=== PATIENT | male | born 1970 | race Caucasian/White ===

== ENCOUNTER 2023-08-26 06:29 | Day surgery (SDC) | payer OTHER ==
[~2023-08-26] VITALS: Ht 177.8 cm; Wt 98.4 kg
[~2023-08-26 06:29] MED LIST: MIDAZOLAM HCL 5 MG/5 ML VIAL IV PRN; fentaNYL citrate 100 MCG/2 ML VIAL IV PRN
[2023-08-26] MEDS ORDERED: MIDAZOLAM HCL 5 MG/5 ML VIAL ONE (06:39)
[2023-08-26] MEDS ORDERED: fentaNYL citrate 100 MCG/2 ML VIAL ONE (06:39)
[2023-08-26 06:47] VITALS: BP 142/96
[2023-08-26] MEDS ORDERED: LIDOCAINE HCL 1% 5 ML SDV INJ ONE (07:00)
[2023-08-26] MEDS ORDERED: LACTATED RINGER'S 1,000 ML IV SCH (07:00)
[2023-08-26] MEDS ORDERED: IBLOOD GLUCOSE TEST STRIP 1 EA TEST VI PRN (07:00)
--- NOTE | 2023-08-26 07:36 | NUR ---
ROUNDS. PT GONE FOR PROCEDURE. PROVIDED PRAYER.
--- NOTE | 2023-08-26 08:02 | NUR ---
08/26/23 0802 Adela Rodriguez 0754-PATIENT ARRIVED TO PACU ON RA RR EVEN. PATIENT AWAKE DENIES PAIN OR NAUSEA ABDOMEN SOFT IVF INFUSING. PATIENT ORIENTED TO PACU. TO BE CALLED FOR RIDE HOME. PATIENT ENCOURAGED TO PASS GAS. 0802-PATIENT AWAKE DENIES PAIN OR NAUSEA. HOB ELEVATED RA 96% RR EVEN.
[2023-08-26 08:25] VITALS: BP 134/95
--- NOTE | 2023-08-26 09:50 | OR ---
[facility] [address], [place] [address] Signed DATE OF OPERATION: 08/26/2023 SURGEON: Linsey Lange MD PREOPERATIVE DIAGNOSIS: Screening. POSTOPERATIVE DIAGNOSES: 1. Minimal internal hemorrhoids. 2. Tortuous, narrowed sigmoid colon. PROCEDURE: Colonoscopy without biopsy. ESTIMATED BLOOD LOSS: None. INDICATIONS: Sotero is a 52-year-old gentleman, asked to see me for a screening colonoscopy. He has no lower GI complaints. There is no family history of colon cancer or polyps. This would be his 1st colonoscopy. He mentioned to me that I helped his a couple of years ago. In fact, his actually remember the prep quite well. In the office, I gave Sotero a pamphlet on colonoscopy. We reviewed the nature of the test. There is risk including, but not limited to gas bloating, crampy abdominal pain, bleeding, perforation requiring surgery, and missed diagnosis. We also reviewed the written instructions for bowel prep line by line. We also reviewed the need for IV conscious sedation. He had expressed understanding and wished to proceed. DESCRIPTION OF PROCEDURE: Sotero was taken into our endoscopy suite and placed in the left lateral decubitus position. He was given a total of 7 mg of Versed and 100 mcg of fentanyl to cover the case. Even then, he was frequently awake and talking to us and pushing back on the scope. I suspect he would be much better served with monitored anesthesia care and propofol infusion. A digital rectal exam was performed. He had good sphincter tone. There were no external hemorrhoids. There were no masses. His prostate is just starting to get indurated. The adult colonoscope was introduced and advanced under direct visualization of the camera up into the cecum itself. We had to frequently pause and allow him to rest and catch up with some Versed and fentanyl. His prep was quite excellent. We could easily see the appendiceal orifice and ileocecal valve. The scope was then slowly withdrawn. There was no pathology whatsoever throughout the entire Electronically Signed By: LINSEY LANGE MD 08/26/23 0950 PATIENT NAME: DILLAN BRANDON OPERATIVE REPORT DATE OF : 72 REPORT #: [id number] PHYSICIAN: LINSEY LANGE MD PCP: KLAUS BELCHER MD REPORT IS CONFIDENTIAL AND NOT TO BE RELEASED WITHOUT AUTHORIZATION [facility] [address] [place], [place] [address] Signed colon or rectum. He does have a tortuous somewhat narrowed sigmoid colon and that is what gave me the most trouble with sedation. Once in the rectum, the scope had been retroflexed and he does have minimal internal hemorrhoid columns. After this, the gas was suctioned out and the colonoscope removed. Overall, Sotero tolerated the procedure well. RECOMMENDATIONS: Sotero can return in 10 years for repeat screening colonoscopy. He might consider monitored anesthesia care with propofol infusion particularly as he gets older. MD ALEXANDRA Palmer/RAFFAELEL /[id number] cc: MD Klaus Palmer MD Copies: LINSEY LANGE MD, RUSSELL BARR MD ~ Electronically Signed By: LINSEY LANGE MD 08/26/23 0950 PATIENT NAME: DILLAN BRANDON OPERATIVE REPORT DATE OF : 72 REPORT #: [id number] PHYSICIAN: LINSEY LANGE MD PCP: KLAUS BELCHER MD REPORT IS CONFIDENTIAL AND NOT TO BE RELEASED WITHOUT AUTHORIZATION
== END 2023-08-26 08:30 | disposition home or self-care (01) ==
LOC: DS 06:29
PROVIDERS: ATTEND Colon & Rectal Surgery
PROC: 0DJD8ZZ Inspection of Lower Intestinal Tract, Via Natural or Artificial Opening Endoscopic (ICD-10-PCS; principal; 2023-08-26 07:30)
DX: Z12.11 Encounter for screening for malignant neoplasm of colon (principal); K63.89 Other specified diseases of intestine; K64.8 Other hemorrhoids
CPT/HCPCS: J2250; J3010; J7121

== ENCOUNTER 2025-05-27 11:18 | Emergency (ER) | payer OTHER ==
[~2025-05-27] VITALS: Ht 177.8 cm; Wt 93.2 kg
[2025-05-27 11:34] LABS: BASOPHILS 1.1 % (0.2-1.2); EOSINOPHILS 3.2 % (0.8-7.0); LYMPHOCYTES 32.0 % (21.8-53.1); MCH 31.2 PG (25.7-32.2); MCHC 33.4 g/dL (32.3-36.5); MCV 93.4 fL (79.0-92.2); MONOCYTES 13.1 % (5.3-12.2); NEUTROPHILS 50.4 % (34.0-67.9); RBC 5.00 M/uL (4.63-6.08)
[2025-05-27] MEDS ORDERED: SODIUM CHLORIDE 0.9% 1,000 ML IV PRN (11:45)
[2025-05-27 11:50] LABS: ALT (SGPT) 49.0 U/L (14-59); AST (SGOT) 22.0 U/L (15-37); GLOMERULAR FILTRATION RATE,EST 76.0 mL/min (>60); PROTEIN, TOTAL 7.3 g/dL (6.4-8.2); UREA NITROGEN 14.0 mg/dL (7-18)
[2025-05-27 12:18] LABS: BLOOD/HGB, URINE NEGATIVE (Negative); KETONE, URINE NEGATIVE (Negative); LEUK ESTERASE, URINE NEGATIVE (negative); NITRITE, URINE NEGATIVE (negative)
[2025-05-27 13:36] VITALS: BP 149/94
--- NOTE | 2025-06-01 22:26 | EKG ---
[facility] [address] [facility] [place] [address] Signed Sinus rhythm with 1st degree AV block Incomplete right bundle branch block Borderline ECG No previous ECGs available Confirmed by Wandy Randolph MD () on 06/01/2025 10:26:43 PM Electronically Signed By: WANDY RANDOLPH MD 06/01/252225 PATIENT NAME: ALEKSANDRDILLANZARA VIGIL Electrocardiogram DATE OF : 72 PHYSICIAN: WANDY RANDOLPH MD REPORT #: [id number] REPORT IS CONFIDENTIAL AND NOT TO BE RELEASED WITHOUT AUTHORIZATION
== END 2025-05-27 14:22 | disposition home or self-care (01) ==
LOC: ED 11:18
PROVIDERS: Emergency Medicine
DX: G45.4 Transient global amnesia (principal)
CPT/HCPCS: 36415; 70450; 70496; 70498; 70551; 71045; 80053; 81003; 85025; 93005; 93010; 99285-25; Q3014; Q9967